=== PATIENT | female | born 1975 | race Two or more races ===

== ENCOUNTER → 2025-03-30 | Outpatient (CLI) | payer MEDICAID, SELFPAY ==
--- NOTE | 2025-03-30 08:30 | XR_ITS ---
Examinations: MRI Brain without intravenous contrast. MRI brain with intravenous contrast MRA brain with intravenous contrast. MRA brain without intravenous contrast MRA neck with intravenous contrast Date and time of exam: March 30, 2025 0858 hours INDICATIONS: Weakness in the left lower extremity difficulty walking intermittent dizziness 3 years Technique: Multiple axial and sagittal images of the brain have been obtained Siemens high-resolution 1.5 Marta short bore scanner is utilized. Sagittal sections, T1-weighted, TR 500, TE 14 Axial sections proton density and T2-weighted, TR 3,000, TE 34, TR 3,000, TE 91 Inversion recovery axial images, TR 9,260, TE 111, TI 2,500 Diffusion weighted images, axial sections, TR 4,800, TE 128, B value 1,000 Axial sections, ADC map, TR 4,800, TE 128. Contrast images have been obtained post intravenous 20 cc Gadolinium. T1-weighted axial and coronal images post contrast have been obtained. Angiographic images of neck and brain are obtained pre and post contrast. 3-D post processing performed, including brain, extracranial neck arterial maximum intensity projections Findings: Sellaturcica is not enlarged. The optic chiasm and infundibular stalk are not remarkable. Prepontine and interpeduncular cisterns are not enlarged. No localized enlargement of the medulla or josse. Fourth ventricle and cerebellar tonsils normal in position. Subacute hemorrhage is not seen. Fourth ventricle is midline. Mass in the cerebellopontine angle region is not evident. 7th and 8th nerve complexes exhibits symmetry. Globes are symmetrical with no retro-orbital mass. Increased white matter signal evident especially prominent in the right posterior parietal lobe Diffusion-weighted images demonstratesubtle foci restricted diffusion in the right parietal lobe diffusion image 15 without signal deficit on the ADC map. Mass-effect upon the ventricular system is not identified. Abnormal contrast enhancement is evident at the area of increased signal on the diffusion-weighted images in the right posterior parietal lobe. MRA brain carotid images suspicious for high-grade stenosis origin right internal carotid artery, no large vessel occlusions Impression: Large focus increased signal right parietal lobe with irregular enhancement at this site Differential would include demyelinating disease, early neoplasm in the right parietal lobe not excluded, the appearance should be correlated with clinical findings on neurologic assessment
== END | disposition home or self-care (01) ==
LOC: SMRI 06:52
PROVIDERS: PCP Physician Assistant; Referring Provider Psychiatry & Neurology Neurology; Visit Provider Psychiatry & Neurology Neurology
DX: G93.9 Disorder of brain, unspecified (principal)
CPT/HCPCS: 70546; 70548; 70553; A9579

== ENCOUNTER → 2025-04-12 | Outpatient (CLI) | payer MEDICAID, SELFPAY ==
[2025-04-12 09:24] LABS: HCG Qualitative,Urine Negative
--- NOTE | 2025-04-12 09:30 | XR_ITS ---
Examination: CT brain head with intravenous contrast. 2-D sagittal reconstructions. 2-D coronal reconstructions. Date and time of exam:April 12, 2025 1017 hours INDICATIONS: History CVA 3 months ago with weakness left upper extremity, slurred speech, diabetes diagnoses 3 years CTDI: vol (mGy): 40.7 DLP: (mGycm):738 Technique: Axial sections of the brain have been obtained. 5 mm slice thickness images have been obtained. Intravenous contrast material has not been administered. Low dose protocols were performed. One or more of the following dose reduction techniques were used; automated exposure control, adjustment of the mA and/or KV according to patient size, use of iterative reconstruction technique. Findings: Ventricles are not enlarged No mass effect upon the ventricular system Encephalomalacia in the right parietal lobe Cranial vault intact Fourth ventricle midline IMPRESSION: Encephalomalacia right parietal lobe No abnormal enhancing cerebellar or cerebral lesions
== END | disposition home or self-care (01) ==
PROVIDERS: PCP Physician Assistant; Referring Provider Physician Assistant; Visit Provider Physician Assistant
DX: G93.89 Other specified disorders of brain (principal); Z32.00 Encounter for pregnancy test, result unknown
CPT/HCPCS: 70460; 81025; A4649; Q9967